=== PATIENT | female | born 1960 | race Caucasian/White ===

== ENCOUNTER 2023-07-06 11:45 | Day surgery (SDC) | payer OTHER ==
--- NOTE | 2023-07-06 11:05 | HISTORY & PHYSICAL EXAMINATION ---
HPI - History of Present Illness HPI Comment/Other: Pre-op H&P I am asked to see Murray for a screening colonoscopy examination. GI symptoms: None Family history of colon cancer: No Family history of colon polyps: No Personal history of colon polyps: Yes - pathology report not available (requested from [facility]) Last colonoscopy examination: 7 years ago Anticoagulant use: No The Past Family, Social and Personal History has been reviewed with the patient. ROS Denies fevers, chills, night sweats, shortness of breath, chest pain, change in the color of skin or urine, diarrhea, constipation, hematemesis, hematochezia, headache, visual changes, muscle aches. PE VSS, Afeb HEENT: Pupils equal, round and reactive to light, sclera anicteric, normal hearing, oral mucous membranes moist and without lesions NECK: Supple without lymphadenopathy, thyromegaly or carotid bruits LUNGS: Clear to auscultation without wheezing HEART: NSR without murmurs CHEST: Equal and symmetric expansion, no rib pain ABD: Soft, nontender, no hepatosplenomegaly, no hernias GROIN: No hernias or lymphadenopathy EXTREMITIES: Normal neuro and muscular exam SKIN: Anicteric Radiologic Studies N/A Assessment: Request for a screening colonoscopy examination. Plan: Screening colonoscopy under sedation through the Day Surgery admission protocol at [facility]. Consent: Murray has been counseled for the procedure, it's indications, risks, benefits and expected outcome as well as alternative therapies. We specifically discussed risks associated with anesthesia and insertion of the endoscope into the large intestine which includes bleeding and injury to the colon which may require surgical intervention. Murray understands, agrees, and consents to the proposed operative strategy and requests that we proceed with the procedure as outlined in our discussion. Swapnil Case MD, FACS General Surgery Service Meds/Allgy - Home Medications Home Medications: Ambulatory Orders Medication Instructions Recorded Confirmed Fexofenadine [Alicia] 60 mg PO DAILY 07/06/23 07/06/23 Gabapentin [Gabapentin ER] 600 mg PO DAILY 07/06/23 07/06/23 Meloxicam 7.5 mg PO BID 07/06/23 07/06/23 - Allergies Allergies/Adverse Reactions: Allergies Allergy/AdvReac Type Severity Reaction Status Date / Time No Known Drug Allergies Allergy Verified 07/06/23 12:12
[2023-07-06] MEDS ORDERED: PROPOFOL 500 MG/50 ML 500 MG/50 ML VIAL ONE (11:59)
[2023-07-06] MEDS: LACTATED RINGERS 1,000 ML IV ONE (12:25)
--- NOTE | 2023-07-06 12:29 | ANESTHESIA ---
Pre-Anesthesia VS, & Labs - Diagnosis screening - Procedure colonscopy Vital Signs: Temp Pulse Resp BP Pulse Ox O2 Flow Rate 36.7 C 62 16 175/105 H 98 07/06/23 12:14 07/06/23 12:14 07/06/23 12:14 07/06/23 12:14 07/06/23 12:14 Height: 5 ft 4 in Weight (kg): 80 kg Body Mass Index: 30.2 BMI Classification: Obese - NPO Other (last prep at 930) - Is Patient ?: No Home Medications and Allergies Home Medications: Ambulatory Orders Fexofenadine [Alicia] 60 mg PO DAILY 07/06/23 Gabapentin [Gabapentin ER] 600 mg PO DAILY 07/06/23 Meloxicam 7.5 mg PO BID 07/06/23 Fexofenadine [Alicia] 60 mg PO DAILY 07/06/23 Gabapentin [Gabapentin ER] 600 mg PO DAILY 07/06/23 Meloxicam 7.5 mg PO BID 07/06/23 Allergies/Adverse Reactions: Allergies Allergy/AdvReac Type Severity Reaction Status Date / Time No Known Drug Allergies Allergy Verified 07/06/23 12:12 Anes History & Medical History - Anesthetic History Anesthesia Complications: reports: No previous complications - Medical History Cardiovascular: reports: High cholesterol Pulmonary: reports: None Gastrointestinal: reports: None Urinary: reports: None Musculoskeletal: reports: Osteoarthritis Endocrine/Autoimmune: reports: None Skin: reports: None - Surgical History General: reports: Colonoscopy Orthopedic: reports: Carpal Tunnel surgery Exam General: Alert, Oriented x3 Dental: WNL Mouth Opening: Greater than 4 Fingerbreadths Neck Mobility: Normal Mallampati classification: II Thyromental Distance: greater than 6 cm Respiratory: Lungs clear Cardiovascular: Regular rate, Normal S1, Normal S2 Plan Anesthesia Type: Total IV Consent for Procedure(s) Verified and Reviewed: Yes Code Status: Attempt Resuscitation ASA classification: 2-Mild systemic disease Is this case an emergency?: No
[2023-07-06] MEDS: LACTATED RINGERS 500 ML IV ONE (13:25)
[2023-07-06 14:06] VITALS: BP 156/69; O2SAT 99
--- NOTE | 2023-07-06 14:21 | ANESTHESIA POST OP EVALUATION ---
Anesthesia Post Eval - Post Anesthesia Eval Vitals: Last Vital Signs Temp 36.2 C L 07/06/23 13:54 Pulse 60 07/06/23 13:54 Resp 16 07/06/23 13:54 BP 156/69 H 07/06/23 13:54 Pulse Ox 99 07/06/23 13:54 O2 Flow Rate CV Function Including HR & BP: Stable Pain Control: Satisfactory Nausea & Vomiting: Negative Mental Status: Baseline Respiratory Status: Airway Patent Hydration Status: Satisfactory Anesthesia Complications: None
== END 2023-07-06 11:46 | disposition home or self-care (01) ==
LOC: SDS 11:45
PROVIDERS: ATTEND Surgery
PROC: 0DBL8ZX Excision of Transverse Colon, Via Natural or Artificial Opening Endoscopic, Diagnostic (ICD-10-PCS; 2023-07-06)
PROC: 0DBH8ZX Excision of Cecum, Via Natural or Artificial Opening Endoscopic, Diagnostic (ICD-10-PCS; principal; 2023-07-06 12:45)
DX: Z12.11 Encounter for screening for malignant neoplasm of colon (principal); D12.0 Benign neoplasm of cecum; D12.3 Benign neoplasm of transverse colon; E66.9 Obesity, unspecified; Z68.30 Body mass index [BMI] 30.0-30.9, adult
CPT/HCPCS: 45380; J7120